=== PATIENT | female | born 1945 | race Caucasian/White ===

== ENCOUNTER → 2016-05-24 | Outpatient (CLI) | payer OTHER ==
[~2016-05-24] MED LIST: CALC-343 PO; CALCTAB5 PO; CHOL2000 PO; DNSIS60 INJ; HYDR-3419 PO; MULT-506 PO; NITR-5 PO; OMEP40CA41 PO; ONDA4TAB10 SL; OXYC-57 PO; OXYC1TAB3 PO; PHEN-775 PO; RANI300T2 PO; SERT100T PO; SIMV20TA2 PO; SYMIN160 INH; VNTHFA/IN INH
--- NOTE | 2016-05-24 09:52 | DIAGNOSTIC IMAGING REPORT ---
KUB CLINICAL HISTORY: NEPHROLITHIASIS,592.N20.0 nephrocalcinosis COMPARISON STUDY: CT abdomen dated 03/01/2016 FINDINGS: 6 mm nonobstructing calcification lower pole left kidney. This is unchanged in the patient's prior CT study. Reference are shows otherwise are unremarkable within limitations of overlying bowel content. There are several pelvic vascular calcifications. IMPRESSION: Unchanging 6 mm calcification lower pole left kidney. Otherwise negative study Electronically signed by: Sergei Sanchez M.D. 05/24/2016 9:50 AM Dictated Date/Time: 05/24/2016 9:49 AM
[2016-05-24 15:19] LABS: BLOOD UREA NITROGEN 11 mg/dl (7-18); BUN/CREATININE RATIO 12.4 (10-20); CREATININE 0.92 mg/dl (0.60-1.20)
== END | disposition home or self-care (01) ==
LOC: C.RAD 09:16
PROVIDERS: ATTEND Urology
DX: N20.0 Calculus of kidney (principal); M54.5 Low back pain

== ENCOUNTER → 2016-05-31 | Outpatient (CLI) | payer OTHER ==
[~2016-05-31] MED LIST changes: +OPTIRAY 300 IV PRN
--- NOTE | 2016-05-31 15:45 | DIAGNOSTIC IMAGING REPORT ---
IVP W/OR W/O TOMOGRAMS CLINICAL HISTORY: N20.0 [id number] Right low back pain. COMPARISON STUDY: KUB 05/24/2016. FINDINGS: [employer] images demonstrate an 8 mm stone within the lower pole of the left kidney and a 1 cm stone within the upper pole of the right kidney. These remain unchanged. No ureteral calculi identified. A few punctate calcifications in the deep pelvis likely represent phleboliths. Following the intravenous administration of contrast there is prompt and symmetric perfusion of the kidneys. Cholecystectomy. The kidneys are normal in size and shape. No hydronephrosis. No suspicious filling defects seen within the bilateral renal collecting systems, ureters, or bladder. The bladder is normal in size. Trace postvoid residual. IMPRESSION: 1. Stable bilateral nephrolithiasis. 2. No hydronephrosis. 3. Trace postvoid residual. 4. No suspicious filling defects seen within the bilateral renal collecting systems, ureters, or bladder. Electronically signed by: Conor Kumar M.D. 05/31/2016 3:44 PM Dictated Date/Time: 05/31/2016 3:40 PM
== END | disposition home or self-care (01) ==
LOC: C.RAD 12:21
PROVIDERS: ATTEND Nurse Practitioner Adult Health
DX: N20.0 Calculus of kidney (principal); M54.5 Low back pain

== ENCOUNTER → 2016-06-11 | Day surgery (SDC) | payer OTHER ==
[2016-06-03 12:00] LABS: BASO % 0.5 %; BASO ABS # 0.03 K/uL (0-0.2); COMPLETE YES; EOS % 2.5 %; HEMATOCRIT 41.8 % (37-47); LYMPH % 21.4 %; LYMPH ABS # 1.39 K/uL (1.2-3.4); MEAN CELL VOLUME 85.8 fL (80-100); MEAN CORPUSCULAR HEMOGLOBIN 28.3 pg (25-34); MEAN PLATELET VOLUME 9.5 fL (7.4-10.4); NEUT % 67.6 %; PLATELET COUNT 256 K/uL (130-400); RED BLOOD COUNT 4.87 M/uL (4.2-5.4)
[2016-06-03 12:02] LABS: MANUAL MICROSCOPIC REQUIRED? NO; REVIEW REQ? YES; URINE APPEARANCE CLOUDY (CLEAR); URINE BILIRUBIN NEG (NEG); URINE COLOR YELLOW; URINE NITRITE NEG (NEG); URINE SPECIFIC GRAVITY 1.024 (1.000-1.030); UROBILINOGEN NEG (NEG)
--- NOTE | 2016-06-03 12:33 | DIAGNOSTIC IMAGING REPORT ---
CHEST 2 VIEWS ROUTINE HISTORY: Nephrolithiasis. COMPARISON: Abdomen and pelvis CT 03/01/2016. FINDINGS: Left basilar density. The left upper lobe is clear. The right lung is clear. No pleural effusions. No pneumothorax. Prior cholecystectomy. The heart is normal in size. IMPRESSION: Left basilar density. This likely represents a combination of the large hiatus hernia and left lower lobe atelectasis as seen on the prior CT examination. Electronically signed by: Conor Kumar M.D. 06/03/2016 12:31 PM Dictated Date/Time: 06/03/2016 12:28 PM
[2016-06-03 13:17] LABS: POTASSIUM 3.9 mmol/L (3.5-5.1)
[2016-06-07 07:36] VITALS: Ht 165.1 cm; Wt 89.5 kg
[~2016-06-11] VITALS: Ht 165.1 cm; Wt 89.5 kg
[~2016-06-11] MED LIST changes: +ATROPINE SULFATE 0.1 MG/ML 5ML SYR IV PRN; +CIPROFLOXACIN 400MG / D5W IV SCH; +DEXAMETHASONE SOD INJ 4 MG/ML VIAL ONE; +EpHEDrine SULFATE INJ 50 MG/ML AMP IV PRN; +FENTANYL CITRATE INJ 50 MCG/1 ML 2 ML VIAL ONE; +LACTATED RINGER'S 1000ML 1,000 ML IV SCH; +LIDOCAINE HCL 2% 2 ML VIAL (20MG/ML) ONE; +MIDAZOLAM HCL 1 MG/ML 2ML VIAL ONE; +ONDANSETRON INJ 2 MG/ML 2 ML VIAL ONE; -OPTIRAY 300 IV PRN; +PROPOFOL IV EMULSION 10 MG/ML 20 ML VIAL IV ONE
--- NOTE | 2016-06-11 10:04 | History & Physical Bridge - SC ---
H&P Re-Evaluation Bridge Note: I have examined the patient, reviewed the History & Physical and in the interval since the performance of the History & Physical I have noted the following changes of clinical significance: No changes noted
--- NOTE | 2016-06-11 10:48 | [facility] Post Operative Brief Note ---
Immediate Operative Summary Operative Date Jun 11, 2016. Pre-Operative Diagnosis Right renal stone Post-Operative Diagnosis same Procedure(s) Performed Right Extracorporeal Shock Wave Lithotripsy--RENAL Surgeon Dr Jarvis Trainman Surgeon(s) 0 Estimated Blood Loss 0 Findings r renal stone Specimens 0 Disposition Recovery Room / PACU
--- NOTE | 2016-06-11 10:50 | Discharge Instructions-SurgCtr ---
Discharge Instructions Visit Reason for Visit: Stones Discharge Goals Goal(s): Decrease discomfort, Increase independence, Improve disease control Activity Recommendations Activity Limitations: per Instructions/Follow-up section (no driving today or on narcotics) Anesthesia . Post Anesthesia Instructions: If you have had General Anesthesia or IV Sedation: * Do not drive today. * Resume driving when surgeon permits. * Do not make important decisions or sign legal documents today. * Call surgeon for: 1. Temperature elevations greater than 101 degrees F. 2. Uncontrollable pain. 3. Excessive bleeding. 4. Persistent nausea and vomiting. 5. Medication intolerance (nausea, vomiting or rash). * For nausea and vomiting use only clear liquids such as: tea, soda, bouillon until nausea subsides, then gradually increase diet as tolerated. * If you have any concerns or questions, call your surgeon's office. If physician is unavailable and it is an emergency, call 911 or go to the nearest emergency room. . Diet Recommendations Home Diet: resume previous diet Procedures Procedures Performed: Right Extracorporeal Shock Wave Lithotripsy--RENAL Pending Studies Studies pending at discharge: no Medical Emergencies . Who to Call and When: Medical Emergencies: If at any time you feel your situation is an emergency, please call 911 immediately. . Non-Emergent Contact Non-Emergency issues call your: Urologist . . "Provider Documentation" section prepared by Aleksandar Jarvis.
--- NOTE | 2016-06-11 11:03 | Anesthesia Progress Nt - [facility] ---
Anesthesia Post Op Note Date & Time Jun 11, 2016 at 11:04 Vital Signs Pain Intensity: 0 Vital Signs Past 12 Hours Date Time Temp Pulse Resp B/P Pulse Ox O2 Delivery O2 Flow Rate FiO2 06/11/16 10:50 36.7 79 12 140/83 95 Diffusion Mask 6 06/11/16 09:25 37.0 74 18 155/91 95 Room Air Notes Mental Status: alert / awake / arousable, participated in evaluation Pt Amnestic to Procedure: Yes Nausea / Vomiting: adequately controlled Pain: adequately controlled Airway Patency, RR, SpO2: stable & adequate BP & HR: stable & adequate Hydration State: stable & adequate Anesthetic Complications: no major complications apparent
[2016-06-11 11:53] VITALS: TEMP 36.4
--- NOTE | 2016-06-11 12:13 | OPERATIVE REPORT ---
DATE OF OPERATION: 06/11/2016 PREOPERATIVE DIAGNOSIS: Proximal right renal stone. POSTOPERATIVE DIAGNOSIS: Same. PROCEDURE: Right ESWL. SURGEON: Dr. Jarvis. ANESTHESIA: General. INDICATIONS: The patient is a 70-year-old female with a right renal stone who is here for ESWL. DESCRIPTION OF THE PROCEDURE: The patient was taken to the operating room. She was placed in supine position. She had been given preoperative antibiotics and had Venodyne stockings placed. She was given general anesthesia. The x-ray was able to localize the stone in 2 views and she was given 2500 shocks, the majority at level 5. The stone did appear to fragment. At the end of the procedure she was transferred to the recovery room in stable condition. I attest to the content of the Intraoperative Record and any orders documented therein. Any exceptio ns are noted below.
[2016-06-11 12:23] VITALS: BP 148/74; PULSE 71; O2SAT 95
== END | disposition home or self-care (01) ==
LOC: X.SURG 08:53
PROVIDERS: ATTEND Urology
DX: N20.0 Calculus of kidney (principal); M19.90 Unspecified osteoarthritis, unspecified site; J45.909 Unspecified asthma, uncomplicated; E78.00 Pure hypercholesterolemia, unspecified; Z98.890 Other specified postprocedural states; Z88.0 Allergy status to penicillin; Z88.5 Allergy status to narcotic agent

== ENCOUNTER 2016-06-14 03:38 | Emergency (ER) | payer OTHER ==
[~2016-06-14] VITALS: Ht 165.1 cm; Wt 89.5 kg
[~2016-06-14 03:38] MED LIST changes: -ATROPINE SULFATE 0.1 MG/ML 5ML SYR IV PRN; -CALC-343 PO; -CHOL2000 PO; -CIPROFLOXACIN 400MG / D5W IV SCH; -DEXAMETHASONE SOD INJ 4 MG/ML VIAL ONE; -EpHEDrine SULFATE INJ 50 MG/ML AMP IV PRN; -FENTANYL CITRATE INJ 50 MCG/1 ML 2 ML VIAL ONE; -LACTATED RINGER'S 1000ML 1,000 ML IV SCH; -LIDOCAINE HCL 2% 2 ML VIAL (20MG/ML) ONE; -MIDAZOLAM HCL 1 MG/ML 2ML VIAL ONE; -MULT-506 PO; -NITR-5 PO; -ONDA4TAB10 SL; -ONDANSETRON INJ 2 MG/ML 2 ML VIAL ONE; -OXYC1TAB3 PO; -PHEN-775 PO; -PROPOFOL IV EMULSION 10 MG/ML 20 ML VIAL IV ONE; -RANI300T2 PO
[2016-06-14 03:46] VITALS: TEMP 36.6; Ht 165.1 cm; Wt 89.5 kg
[2016-06-14] MEDS ORDERED: HYDROmorphone INJ 1 MG/ML SYR IV STA (03:57)
[2016-06-14] MEDS ORDERED: SODIUM CHLORIDE 0.9% 1000ML 1,000 ML IV STA (03:57)
[2016-06-14] MEDS ORDERED: ONDANSETRON INJ 2 MG/ML 2 ML VIAL IV STA (03:57)
--- NOTE | 2016-06-14 04:05 | EMERGENCY ROOM VISIT NOTE ---
History Report prepared by Lidia: Felix Silva Under the Supervision of: Dr. Jeffry Hansen M.D. First contact with patient: 03:53 Chief Complaint: KIDNEY STONE Stated Complaint: VOMITING,UNBEARABLE PAIN,KIDNEY STONE THERAPY FRI History of Present Illness The patient is a 70 year old female who presents to the Emergency Room with complaints of severe and constant pain in her right flank that began Tuesday morning, one day prior to arrival. The patient was diagnosed with a stone in both kidneys, and had lithotripsy performed on the right. There was no stent placed following this procedure. She also complains of nausea and vomiting secondary to the pain. She was giving a prescription of Hydrocodone following the lithotripsy procedure, but she claims that it upsets her stomach. Source of History: patient Onset: One day SINGLE RESOURCE BOSS Position: other (Right Flank) Symptom Intensity: severe Quality: other (Kidney Stone) Timing: constant Associated Symptoms: + nausea, + vomiting Review of Systems See HPI for pertinent positives & negatives. A total of 10 systems reviewed and were otherwise negative. Past Medical & Surgical Medical Problems: (1) Hx of renal calculi Surgical Problems: (1) Status post laser lithotripsy of ureteral calculus Family History No pertinent family history secondary to age. Social History Smoking Status: Never Smoker Alcohol Use: none Drug Use: none Marital Status: Housing Status: lives with significant other Occupation Status: employed Current/Historical Medications Scheduled Budesonide/Formoterol Fumarate (Symbicort 160/4.5 Inhaler ), 2 PUFFS INH BID Calcium Carbonate (Caltrate 600), 2 TAB PO QAM Denosumab (Prolia), 1 DOSE INJ [id number] Nitrofurantoin Monohyd Macrocr (Macrobid), 100 MG PO BID Omeprazole (Prilosec), 40 MG PO QAM Ondasetron Odt (Zofran Odt), 4 MG SL Q6H Sertraline Hcl (Zoloft), 200 MG PO QPM Simvastatin (Zocor), 20 MG PO QPM Scheduled PRN Albuterol Hfa (Ventolin Hfa), 2-4 PUFFS INH Q6H PRN for Shortness of Breath Hydrocodon/Acetaminophen 5MG/300MG (Vicodin (5MG/300MG)), 1 TAB PO Q4H PRN for Pain Oxycodone Immediate Rel Tab (Roxicodone Ir), 1-2 TAB PO Q4H PRN for Severe Pain Oxycodone/Acetaminophen 5MG/325MG (Percocet 5MG/325MG), 1 TABLET PO Q6H PRN for Pain Allergies Coded Allergies: Aspirin (Verified Allergy, Severe, throat swells shut, 06/14/16) Latex (Verified Allergy, Unknown, skin gets reddened., 06/14/16) Penicillins (Verified Allergy, Unknown, HIVES, 06/14/16) Physical Exam Vital Signs Date Time Temp Pulse Resp B/P Pulse Ox O2 Delivery O2 Flow Rate FiO2 06/14/16 07:15 73 18 130/72 90 Room Air 06/14/16 06:00 69 16 133/81 95 Room Air 06/14/16 04:55 76 16 155/83 94 Nasal Cannula 2.0 06/14/16 03:46 36.6 95 20 163/102 94 Room Air Physical Exam GENERAL: Patient is uncomfortable and nauseous appearing and in moderate to severe distress. HEENT: No acute trauma, normocephalic atraumatic, mucous membranes moist, no nasal congestion, no scleral icterus. NECK: No stridor, no adenopathy, no meningismus, trachea is midline. LUNGS: No dyspnea. Clear to auscultation and equal bilaterally. No wheeze, no rhonchi. HEART: Regular rate and rhythm. No murmurs, rubs, gallops appreciated. ABDOMEN: Soft, nontender, bowel sounds positive, no masses appreciated, no peritonitis. BACK: No midline tenderness, mild right CVA tenderness to palpation EXTREMITIES: Normal motion all extremities, no cyanosis, no edema. NEUROLOGIC: Alert and oriented, no acute motor or sensory deficits, no focal weakness, cranial nerves grossly intact. SKIN: No rash, no jaundice, no diaphoresis. Medical Decision & Procedures ER Provider Diagnostic Interpretation: X ray results and stated below per my interpretation and radiologist interpretation. Other radiology results and stated below per my review and radiologist interpretation: US RENAL: Study is limited by bowel gas Mild right hydronephrosis 8 mm shadowing stone suggested lower pole right kidney Difficult to exclude a stone at the proximal right ureter versus artifact from bowel No definite ureteral jets identified during imaging No left hydronephrosis 7 mm nonobstructing stone suggested 9 mm incidental left renal cyst Radiologist: Washington Diallo MD Study ready at 0516 and initial results transmitted at 0550 KUB Multiple stone fragments proximal right ureter Laboratory Results 06/14/16 04:05 Red Blood Count 4.99, Mean Corpuscular Volume 84.2, Mean Corpuscular Hemoglobin 28.9, Mean Corpuscular Hemoglobin Concent 34.3, Mean Platelet Volume 9.0, Neutrophils (%) (Auto) 89.8, Lymphocytes (%) (Auto) 4.5, Monocytes (%) (Auto) 5.4, Eosinophils (%) (Auto) 0.1, Basophils (%) (Auto) 0.1, Neutrophils # (Auto) 12.29, Lymphocytes # (Auto) 0.61, Monocytes # (Auto) 0.74, Eosinophils # (Auto) 0.01, Basophils # (Auto) 0.01 06/14/16 04:05 Test 06/14/16 04:05 White Blood Count 13.68 K/uL (4.8-10.8) Red Blood Count 4.99 M/uL (4.2-5.4) Hemoglobin 14.4 g/dL (12.0-16.0) Hematocrit 42.0 % (37-47) Mean Corpuscular Volume 84.2 fL (80-100) Mean Corpuscular Hemoglobin 28.9 pg (25-34) Mean Corpuscular Hemoglobin Concent 34.3 g/dl (32-36) Platelet Count 254 K/uL (130-400) Mean Platelet Volume 9.0 fL (7.4-10.4) Neutrophils (%) (Auto) 89.8 % Lymphocytes (%) (Auto) 4.5 % Monocytes (%) (Auto) 5.4 % Eosinophils (%) (Auto) 0.1 % Basophils (%) (Auto) 0.1 % Neutrophils # (Auto) 12.29 K/uL (1.4-6.5) Lymphocytes # (Auto) 0.61 K/uL (1.2-3.4) Monocytes # (Auto) 0.74 K/uL (0.11-0.59) Eosinophils # (Auto) 0.01 K/uL (0-0.5) Basophils # (Auto) 0.01 K/uL (0-0.2) RDW Standard Deviation 39.7 fL (36.4-46.3) RDW Coefficient of Variation 13.0 % (11.5-14.5) Immature Granulocyte % (Auto) 0.1 % Immature Granulocyte # (Auto) 0.02 K/uL (0.00-0.02) Urine Color ORANGE Urine Appearance CLOUDY (CLEAR) Urine pH 6.5 (4.5-7.5) Urine Specific [place] 1.022 (1.000-1.030) Urine Protein 1+ (NEG) Urine Glucose (UA) NEG (NEG) Urine Ketones 2+ (NEG) Urine Occult Blood 3+ (NEG) Urine Nitrite NEG (NEG) Urine Bilirubin NEG (NEG) Urine Urobilinogen NEG (NEG) Urine Leukocyte Esterase TRACE (NEG) Urine WBC (Auto) 5-10 /hpf (0-5) Urine RBC (Auto) >30 /hpf (0-4) Urine Hyaline Casts (Auto) 1-5 /lpf (0-5) Urine Epithelial Cells (Auto) >30 /lpf (0-5) Urine Bacteria (Auto) NEG (NEG) Anion Gap 12.0 mmol/L (3-11) Est Creatinine Clear Calc Drug Dose 47.5 ml/min Estimated GFR () 52.7 Estimated GFR (Non- 45.4 BUN/Creatinine Ratio 11.1 (10-20) Calcium Level 8.5 mg/dl (8.5-10.1) Total Bilirubin 0.9 mg/dl (0.2-1) Direct Bilirubin 0.2 mg/dl (0-0.2) Aspartate Amino Transf (AST/SGOT) 14 U/L (15-37) Alanine Aminotransferase (ALT/SGPT) 12 U/L (12-78) Alkaline Phosphatase 72 U/L (45-117) Total Protein 7.4 gm/dl (6.4-8.2) Albumin 3.4 gm/dl (3.4-5.0) Lipase 87 U/L (73-393) Laboratory results as reviewed by me. Medications Administered Medications (Trade) Dose Ordered Sig/Sussy Route Start Time Stop Time Status Last Admin Dose Admin Hydromorphone HCl (Dilaudid Inj) 1 mg NOW STAT IV 06/14/16 03:57 06/14/16 03:58 DC 06/14/16 04:15 1 MG Ondansetron HCl 4 mg 4 mg NOW STAT IV 06/14/16 03:57 06/14/16 03:58 DC 06/14/16 04:14 4 MG Sodium Chloride (Nss 1000ml) 1,000 ml @ 999 mls/hr Q1H1M STAT IV 06/14/16 03:57 06/14/16 04:57 DC 06/14/16 04:16 999 MLS/HR Oxycodone HCl (Roxicodone Immediate Rel 5MG Home Pack) 1 homepack UD ONCE PO 06/14/16 07:00 06/14/16 07:01 DC 06/14/16 07:15 1 HOMEPACK Ondansetron HCl (ZOFRAN ODT 4MG Home Pack) 1 homepack UD ONCE PO 06/14/16 07:00 06/14/16 07:01 DC 06/14/16 07:15 1 HOMEPACK ED Course 0354: The patient was evaluated in room B2. A complete history and physical exam was performed. 0357: Ordered Sodium Chloride 1000 mL @ 999 mL/hr IV, Zofran 4 mg IV, Dilaudid 1 mg IV. 0612: I checked on the patient at this time. She is feeling well. 0620: I discussed the case with Dr. Matheus Blandon at this time. He suggest starting the patient on Macrobid and changing her pain and nausea medications. He will have her follow up in the clinic. The patient will be discharged home. 0700: Ordered Zofran 1 homepack PO, Oxycodone HCl 1 homepack PO. Medical Decision Differential: Renal Colic, Pyelonephritis, Hydronephrosis, Appendicitis, Diverticulitis, Retroperitoneal Bleed/Infection, Aortic Pathology, MSK, Neurologic Pathology, amongst other pathologies entertained. 70 yr old female arrives with acute worsening right flank pain 48 hours post lithotripsy. Vastly improved with single dose Dilaudid here. Happy and feeling much better. US with hydro, KUB with stones in ureter. Mild leukocytosis though no evidence of infection in urine. Discussed with Urology who advise adding on Macrobid and head home. Stable and in no distress at discharge. Discussed risks narcotics. Discussed RTED if worsening or other concerns. Consults Time Called: 06 Consulting Physician: Dr. Matheus Blandon Returned Call: 0620 I discussed the case with Dr. Matheus - Urology at this time. He suggest starting the patient on Macrobid and changing her pain and nausea medications. He will have her follow up in the clinic. Impression Primary Impression: Renal colic on right side Scribe Attestation The scribe's documentation has been prepared under my direction and personally reviewed by me in its entirety. I confirm that the note above accurately reflects all work, treatment, procedures, and medical decision making performed by me. Departure Information Dispostion Home / Self-Care Prescriptions Ondasetron Odt (ZOFRAN ODT) 4 Mg Tab 4 MG SL Q6H for Nausea, #20 TAB Prov: Jeffry Hansen M.D. 06/14/16 Oxycodone Immediate Rel Tab (ROXICODONE IR) 5 Mg Tab 1-2 TAB PO Q4H Y for Severe Pain, #20 TAB Prov: Jeffry Hansen M.D. 06/14/16 Nitrofurantoin Monohyd Macrocr (Macrobid) 100 Mg Cap 100 MG PO BID, #14 CAP Prov: Jeffry Hansen M.D. 06/14/16 Referrals Sandra Og M.D. (PCP) Felice Tran M.D. Patient Instructions ED Stone Renal W Colic, [facility] Additional Instructions You have received a narcotic pain medication prescription. These medications may cause drowsiness and should not be used with other sedative medications. Do not drive, drink alcohol, perform dangerous activities, nor make important decisions after taking these medications. technician terminal and repeater use or inappropriate use may lead to addiction.
[2016-06-14 04:20] LABS: BASO % 0.1 %; BASO ABS # 0.01 K/uL (0-0.2); COMPLETE YES; EOS % 0.1 %; IG% 0.1 %; LYMPH % 4.5 %; LYMPH ABS # 0.61 K/uL (1.2-3.4); MEAN CELL VOLUME 84.2 fL (80-100); MEAN CORPUSCULAR HEMOGLOBIN 28.9 pg (25-34); MEAN CORPUSCULAR HGB CONC 34.3 g/dl (32-36); MONO % 5.4 %; NEUT % 89.8 %; PLATELET COUNT 254 K/uL (130-400); RED BLOOD COUNT 4.99 M/uL (4.2-5.4); WHITE BLOOD COUNT 13.68 K/uL (4.8-10.8)
[2016-06-14 04:38] LABS: BUN/CREATININE RATIO 11.1 (10-20); CALCIUM 8.5 mg/dl (8.5-10.1); CREATININE 1.2 mg/dl (0.60-1.20)
[2016-06-14 04:52] LABS: URINE APPEARANCE CLOUDY (CLEAR); URINE BILIRUBIN NEG (NEG); URINE COLOR ORANGE; URINE EPITHELIAL CELL AUTO >30 /lpf (0-5); URINE NITRITE NEG (NEG); URINE PH 6.5 (4.5-7.5); URINE SPECIFIC GRAVITY 1.022 (1.000-1.030); UROBILINOGEN NEG (NEG); ZZUR CULT IF INDIC CLEAN CATCH NO
[2016-06-14 04:53] LABS: MANUAL MICROSCOPIC REQUIRED? NO; REVIEW REQ? NO
[2016-06-14] MEDS ORDERED: ONDA4TAB10 SL (06:56)
[2016-06-14] MEDS ORDERED: NITR-5 PO (06:56)
[2016-06-14] MEDS ORDERED: OXYC1TAB3 PO (06:56)
[2016-06-14] MEDS ORDERED: OXYCODONE IR HOME PACK PO ONE (07:00)
[2016-06-14] MEDS ORDERED: ONDANSETRON HOME PACK 4MG OD TAB PO ONE (07:00)
[2016-06-14 07:15] VITALS: BP 130/72; PULSE 73; O2SAT 90
--- NOTE | 2016-06-14 07:24 | DIAGNOSTIC IMAGING REPORT ---
RENAL ULTRASOUND HISTORY: right flank pain s/p lithotripsy COMPARISON: IVP 05/31/2016. FINDINGS: There is mild right hydronephrosis. There are bilateral renal calculi with the largest on the right measuring 8 mm within the lower pole and the largest on the left measuring 7 mm. There is 9 mm left renal cyst. Bladder was underdistended and not well visualized. IMPRESSION: 1. Mild right hydronephrosis. 2. Bilateral nephrolithiasis. Electronically signed by: Conor Kumar M.D. 06/14/2016 7:23 AM Dictated Date/Time: 06/14/2016 7:21 AM
--- NOTE | 2016-06-14 07:27 | DIAGNOSTIC IMAGING REPORT ---
KUB HISTORY: right flank pain s/p lithotripsy COMPARISON: IVP 05/31/2016. FINDINGS: The bowel gas pattern is unremarkable. There are no dilated loops of small bowel to suggest an obstruction. Bilateral nephrolithiasis. Largest stone within the lower pole the left kidney measures 7 mm. Clustered stones within the lower pole the right kidney with the largest measuring 5 mm. There is a column of stones within the expected location of the proximal right ureter with the largest measuring 9 mm. IMPRESSION: 1. A column of stones within the proximal right ureter with the largest measuring 9 mm. 2. Bilateral nephrolithiasis. Electronically signed by: Conor Kumar M.D. 06/14/2016 7:25 AM Dictated Date/Time: 06/14/2016 7:24 AM
[2016-12-16] MEDS ORDERED: MULT-506 PO (07:52)
[2016-12-16] MEDS ORDERED: RANI300T2 PO (07:52)
[2016-12-16] MEDS ORDERED: CHOL2000 PO (07:52)
[2016-12-16] MEDS ORDERED: CALC-343 PO (07:52)
[2016-12-28] MEDS ORDERED: PHEN-775 PO (11:45)
[2016-12-28] MEDS ORDERED: OXYC-57 PO (11:45)
== END 2016-06-14 07:21 | disposition home or self-care (01) ==
LOC: C.EDB 03:41
DX: N23 Unspecified renal colic (principal); R11.2 Nausea with vomiting, unspecified; Z79.899 Other long term (current) drug therapy

== ENCOUNTER → 2016-12-01 | Outpatient (CLI) | payer OTHER ==
[~2016-12-01] MED LIST changes: +CALC-343 PO; +CHOL2000 PO; +MULT-506 PO; +NITR-5 PO; +ONDA4TAB10 SL; +OXYC1TAB3 PO; +PHEN-775 PO; +RANI300T2 PO
--- NOTE | 2016-12-01 09:52 | DIAGNOSTIC IMAGING REPORT ---
KUB CLINICAL HISTORY: 71 years-old Female presenting with N20.0 [id number]. TECHNIQUE: Single supine view of the abdomen was obtained. COMPARISON: 06/14/2016. FINDINGS: Previously noted 7 mm calculus at the lower pole the left kidney is unchanged in position. Previous seen noted right renal calculus again noted. However, persistent stacked appearance of calculi along the proximal right ureter, the largest measuring 9 mm. Few pelvic phleboliths noted. Nonobstructive bowel gas pattern. The presence of gas and stool mildly degrades evaluation of the renal parenchyma. Splenic atherosclerosis. Partially visualized posterior fusion hardware in the lower thoracic region. Degenerative changes of the lower lumbar spine. IMPRESSION: 1. Unchanged appearance of the stacked calculi within the proximal right ureter the largest measuring 9 mm. 2. Bilateral nephrolithiasis. Electronically signed by: Silas Shields M.D. 12/01/2016 9:51 AM Dictated Date/Time: 12/01/2016 9:48 AM
== END | disposition home or self-care (01) ==
LOC: C.RAD 09:25
PROVIDERS: ATTEND Urology
DX: N20.0 Calculus of kidney (principal)

== ENCOUNTER 2016-12-28 08:16 | Day surgery (SDC) | payer OTHER ==
[2016-12-16 07:53] VITALS: BMI 31.0
--- NOTE | 2016-12-16 08:21 | PAT Medication Instructions ---
Service Date Dec 16, 2016. Current Home Medication List Albuterol Hfa (Ventolin Hfa), 2-4 PUFFS INH Q6H PRN for Shortness of Breath Budesonide/Formoterol Fumarate (Symbicort 160/4.5 Inhaler ), 2 PUFFS INH BID Calcium Carbonate-Cholecalcife (Calcium 500 +D), 2 TAB PO QAM Cholecalciferol (Vitamin D3), 1 CAP PO QAM Denosumab (Prolia), 1 DOSE INJ [id number] Multivitamin (Multivitamin), 2 TAB PO QAM Omeprazole (Prilosec), 40 MG PO QAM Ranitidine Hcl (Zantac), 300 MG PO HS Sertraline Hcl (Zoloft), 200 MG PO QPM Simvastatin (Zocor), 20 MG PO QPM Medication Instructions For Your Scheduled Surgery - Hold the following medications the morning of surgery: Calcium Carbonate-Cholecalcife (Calcium 500 +D), 2 TAB PO QAM Cholecalciferol (Vitamin D3), 1 CAP PO QAM Multivitamin (Multivitamin), 2 TAB PO QAM - Take the following medications the morning of surgery with a sip of water: Omeprazole (Prilosec), 40 MG PO QAM Albuterol Hfa (Ventolin Hfa), 2-4 PUFFS INH Q6H PRN for Shortness of Breath ( use if needed; BRING TO HOSPITAL) Budesonide/Formoterol Fumarate (Symbicort 160/4.5 Inhaler ), 2 PUFFS INH BID - Take the following medications as scheduled the night before surgery: Ranitidine Hcl (Zantac), 300 MG PO HS Sertraline Hcl (Zoloft), 200 MG PO QPM Simvastatin (Zocor), 20 MG PO QPM Albuterol Hfa (Ventolin Hfa), 2-4 PUFFS INH Q6H PRN for Shortness of Breath Budesonide/Formoterol Fumarate (Symbicort 160/4.5 Inhaler ), 2 PUFFS INH BID If you have any questions please call us at [phone] or [phone] or [phone]
[2016-12-16 09:59] LABS: BASO % 0.3 %; BASO ABS # 0.02 K/uL (0-0.2); COMPLETE YES; EOS % 3.8 %; HEMATOCRIT 39.8 % (37-47); IG% 0.3 %; LYMPH % 16.7 %; LYMPH ABS # 1.07 K/uL (1.2-3.4); MEAN CELL VOLUME 87.3 fL (80-100); MEAN CORPUSCULAR HGB CONC 30.9 g/dl (32-36); MEAN PLATELET VOLUME 9.4 fL (7.4-10.4); MONO % 5.6 %; NEUT % 73.3 %; PLATELET COUNT 275 K/uL (130-400); RED BLOOD COUNT 4.56 M/uL (4.2-5.4)
[2016-12-16 10:05] LABS: URINE APPEARANCE CLEAR (CLEAR); URINE BILIRUBIN NEG (NEG); URINE COLOR YELLOW; URINE EPITHELIAL CELL AUTO 20-30 /lpf (0-5); URINE NITRITE NEG (NEG); URINE SPECIFIC GRAVITY 1.015 (1.000-1.030); UROBILINOGEN NEG (NEG)
[2016-12-16 10:07] LABS: MANUAL MICROSCOPIC REQUIRED? NO; REVIEW REQ? NO
[2016-12-16 10:21] LABS: BUN/CREATININE RATIO 13.7 (10-20); CALCIUM 9.4 mg/dl (8.5-10.1); CREATININE 1.4 mg/dl (0.60-1.20)
[~2016-12-28] VITALS: Ht 167.6 cm; Wt 85.0 kg
[~2016-12-28 08:16] MED LIST changes: -CALCTAB5 PO; +CIPROFLOXACIN / D5W 400 MG IV SCH; -HYDR-3419 PO; +LACTATED RINGER'S 1000ML 1,000 ML IV SCH; -NITR-5 PO; -ONDA4TAB10 SL; -OXYC-57 PO; -OXYC1TAB3 PO; -PHEN-775 PO
[2016-12-28 08:49] VITALS: BP 171/83; PULSE 70; TEMP 36.7; O2SAT 97; Ht 167.6 cm; Wt 85.0 kg
[2016-12-28] MEDS ORDERED: MIDAZOLAM HCL 1 MG/ML 2ML VIAL ONE (09:09)
[2016-12-28] MEDS ORDERED: FENTANYL CITRATE INJ 50 MCG/1 ML 2 ML VIAL ONE (09:10)
[2016-12-28] MEDS ORDERED: PROPOFOL IV EMULSION 10 MG/ML 20 ML VIAL IV ONE ×5 (09:11→09:55)
[2016-12-28] MEDS ORDERED: LIDOCAINE HCL 2% 2 ML VIAL (20MG/ML) ONE (09:11)
[2016-12-28] MEDS ORDERED: ONDANSETRON INJ 2 MG/ML 2 ML VIAL ONE (09:12)
[2016-12-28] MEDS ORDERED: DiphenhydrAMINE HCL 50 MG/ML VIAL ONE (09:55)
[2016-12-28] MEDS ORDERED: DEXAMETHASONE SOD INJ 4 MG/ML VIAL ONE (09:55)
[2016-12-28] MEDS ORDERED: RANITIDINE HCL 25 MG/ML INJ ONE (09:55)
[2016-12-28] MEDS ORDERED: CONRAY 30% 150ML BOTTLE ONE (11:42)
[2016-12-28] MEDS ORDERED: PHEN-775 PO (11:45)
[2016-12-28] MEDS ORDERED: OXYC-57 PO (11:45)
--- NOTE | 2016-12-28 11:47 | Discharge Instructions ---
Discharge Instructions Date of Service Dec 28, 2016. Admission Reason for Admission: Stones Discharge Discharge Diagnosis / Problem: stones Discharge Goals Goal(s): Decrease discomfort, Improve function, Increase independence, Improve disease control Activity Recommendations Activity Limitations: resume your previous activity Lifting Limitations: none Exercise/Sports Limitations: none May Resume Sexual Activity: when tolerated Shower/Bathe: no limitations Driving or Machine Use: resume 1 day after discharge . Instructions / Follow-Up Instructions / Follow-Up Please keep your scheduled follow up appointment with Dr. Tran Discharge Diet Recommended Diet: Regular Diet Pending Studies Studies pending at discharge: no Medical Emergencies . Who to Call and When: Medical Emergencies: If at any time you feel your situation is an emergency, please call 911 immediately. . Non-Emergent Contact Non-Emergency issues call your: Urologist Call Non-Emergent contact if: you have a fever, temperature is above 101.5, your pain is not controlled, your pain is worsening . . "Provider Documentation" section prepared by Max Duron. . VTE Core Measure Inpt VTE Proph given/why not?: Treatment not indicated [place] Drug Monitoring Program Search Results: patient reviewed within database, no issues identified
[2016-12-28] MEDS ORDERED: FENTANYL CITRATE INJ 50 MCG/1 ML 2 ML VIAL IV PRN (12:30)
[2016-12-28] MEDS ORDERED: ATROPINE SULFATE 0.1 MG/ML 5ML SYR IV PRN (12:30)
[2016-12-28] MEDS ORDERED: ONDANSETRON INJ 2 MG/ML 2 ML VIAL IV PRN (12:30)
[2016-12-28] MEDS ORDERED: EpHEDrine SULFATE INJ 50 MG/ML AMP IV PRN (12:30)
[2016-12-28] MEDS ORDERED: PHENAZOPYRIDINE HCL 200 MG TAB PO STA (12:55)
[2016-12-28] MEDS ORDERED: SODIUM CHLORIDE 0.9% 1000ML 1,000 ML IV SCH (12:55)
[2016-12-28] MEDS ORDERED: OXYCODONE/ACETAMINOPHEN 5-325 TAB PO PRN ×2 (13:00)
--- NOTE | 2016-12-28 13:24 | [facility] Operative Report ---
Operative Report Operative Date Dec 28, 2016. Pre-Operative Diagnosis Right Nephrolithiasis Post-Operative Diagnosis Right Nephrolithiasis Procedure(s) Performed Cystoscopy; Right Ureteroscopy; Laser Lithotripsy; Stent placement ([id number]) Surgeon Dr. Maxi Tran [employer] Surgeon(s) none Estimated Blood Loss 5mL Findings Right proximal ureteral stone x2; hydronephrotic R kidney; renal stone Specimens none per surgeon Drains [id number] stent Anesthesia Gen Complication(s) None Disposition Recovery Room / PACU (stable) Indications symptomatic R ureteral stone with hydronephrosis Description of Procedure Patient identified in the preoperative holding area, appropriate informed consent reviewed, patient transported to the operating suite where she received appropriate antibiotics in the form of ciprofloxacin and general anesthesia. Prior to induction of general anesthesia, she positioned herself in dorsal lithotomy position. She was sterilely prepped and draped in standard fashion. A 22 Swazi cystoscope with 30 lens was passed per urethra. Full inspection of the bladder was carried out revealing no evidence of mucosal disease. Ureteral orifices were in orthotopic position. Following this inspection, I cannulated the right ureteral orifice with a sensor wire and a 10 Swazi double- lumen catheter. I performed retrograde pyelogram at that time which revealed filling defects in the proximal ureter consistent with the stones seen previously. The stones were not particularly well visualized with fluoroscopy. And then placed a second wire through the second channel of the catheter. After catheter and attempted to pass a ureteral access sheath. Fortunately there is resistance felt the distal ureter I aborted this plan before traumatizing ureter. I scope was subsequently passed over the wire up to the level of the kidney without resistance. Full renoscopy was carried out. She was noted to have a very dilated renal pelvis and calyceal system. The stone was found in a midpole posterior calyx. She additionally had 2 stones floating in the renal pelvis which are presumed to be the stones from the proximal ureter pushed retrograde into the kidney. I was able to manipulate these into the upper pole. After the full inspection, I passed a 400 laser fiber and fragmented each of the stones completely. I performed a repeat renoscopy and saw no other large retained fragments. I performed a careful exit ureteroscopy and identified no ureteral fragments remaining. I re-opacified the collecting system with a retrograde pyelogram before placing a 6 Swazi by 24 cm double-J ureteral stent. There was a good curl in the bladder as well as the renal pelvis. The bladder was decompressed, and the case concluded. Patient was transported to the PACU in stable condition. I attest to the content of the Intraoperative Record and any orders documented therein. Any exceptions are noted below.
[2016-12-28 13:45] VITALS: BP 122/72; PULSE 73; TEMP 36.4; O2SAT 92
--- NOTE | 2016-12-28 13:48 | Anesthesiology Progress Note ---
Anesthesia Post Op Note Date & Time Dec 28, 2016 at 13:48 Vital Signs Pain Intensity: 0 Vital Signs Past 12 Hours Date Time Temp Pulse Resp B/P (MAP) Pulse Ox O2 Delivery O2 Flow Rate FiO2 12/28/16 13:35 36.3 71 19 136/72 92 Room Air 12/28/16 13:25 77 14 156/100 93 Room Air 12/28/16 13:15 74 17 141/77 98 Oxymask 10 12/28/16 13:08 69 14 137/79 97 Oxymask 10 12/28/16 12:58 36.3 72 16 129/87 96 Oxymask 10 12/28/16 08:49 36.7 70 22 171/83 (112) 97 Room Air Notes Mental Status: alert / awake / arousable, participated in evaluation Pt Amnestic to Procedure: Yes Nausea / Vomiting: adequately controlled Pain: adequately controlled Airway Patency, RR, SpO2: stable & adequate BP & HR: stable & adequate Hydration State: stable & adequate Anesthetic Complications: no major complications apparent
[2016-12-28 14:15] VITALS: BP 124/64; PULSE 71; TEMP 36.4; O2SAT 100
== END 2016-12-28 14:45 | disposition home or self-care (01) ==
LOC: C.ACU 08:16
PROVIDERS: ATTEND Urology
DX: N20.0 Calculus of kidney (principal); E78.00 Pure hypercholesterolemia, unspecified; J45.909 Unspecified asthma, uncomplicated; M19.90 Unspecified osteoarthritis, unspecified site; Z79.899 Other long term (current) drug therapy

== ENCOUNTER → 2017-01-10 | Outpatient (CLI) | payer OTHER ==
[~2017-01-10] MED LIST changes: -CIPROFLOXACIN / D5W 400 MG IV SCH; -LACTATED RINGER'S 1000ML 1,000 ML IV SCH; +OXYC-57 PO
--- NOTE | 2017-01-10 11:56 | DIAGNOSTIC IMAGING REPORT ---
KUB HISTORY: N20.0 Nephrolithiasis RAD COMPARISON: KUB 12/01/2016. FINDINGS: The bowel gas pattern is unremarkable. There are no dilated loops of small bowel to suggest an obstruction. Interval placement of a right ureteral stent. This is likely in good position. No ureteral calculi identified. Punctate calcifications in the deep pelvis remain stable and are consistent with phleboliths. No change in the left renal calculi with the largest in the lower pole measuring 7 mm. The previous identified right renal calculi are obscured by overlying bowel gas. No pneumoperitoneum or pneumatosis. Cholecystectomy. Thoracolumbar spine fusion hardware IMPRESSION: 1. Right ureteral stent which appears to be in good position. No ureteral calculi. 2. Stable left-sided nephrolithiasis. 3. Right renal calculi are obscured by overlying bowel gas. Electronically signed by: Conor Kumar M.D. 01/10/2017 11:55 AM Dictated Date/Time: 01/10/2017 11:53 AM
== END | disposition home or self-care (01) ==
LOC: C.RAD 11:18
PROVIDERS: ATTEND Urology
DX: N20.0 Calculus of kidney (principal); Z96.0 Presence of urogenital implants